=== PATIENT | male | born 1980 | race Caucasian/White ===

== ENCOUNTER 2020-06-25 09:12 | Day surgery (SDC) | payer OTHER ==
[2020-06-18 12:19] VITALS: BMI 29.0
[2020-06-25] MEDS ORDERED: MIDAZOLAM HCL 2 MG/2 ML SINGLE DOSE VIAL ONE ×2 (09:37)
[2020-06-25] MEDS ORDERED: ceFAZolin SODIUM 1 GM VIAL ONE ×2 (09:37→11:01)
[2020-06-25] MEDS ORDERED: KETOROLAC TROMETHAMINE 30 MG/1 ML VIAL ONE ×2 (09:37→11:01)
[2020-06-25] MEDS ORDERED: ONDANSETRON 4 MG/2 ML VIAL ONE ×3 (09:37→12:20)
[2020-06-25] MEDS ORDERED: PROPOFOL 20 ML ONE ×3 (09:37→11:00)
[2020-06-25] MEDS ORDERED: DEXAMETHASONE SOD PHOSPHATE 4 MG/1 ML VIAL ONE ×2 (09:37→11:01)
[2020-06-25] MEDS ORDERED: LIDOCAINE HCL/PF 2% SDV 5ML VIAL ONE ×2 (09:37→09:38)
[2020-06-25] MEDS ORDERED: LIDOCAINE HCL 2% JELLY (5 ML/TUBE) ONE (11:01)
[2020-06-25] MEDS ORDERED: MORPHINE SULFATE 10 MG/1 ML *VIAL ONE (11:10)
[2020-06-25] MEDS ORDERED: DESFLURANE GAS 240 ML BOTTLE IH ONE (11:41)
[2020-06-25] MEDS ORDERED: BUPIVACAINE HCL/PF 0.5% (5 MG/ML) 30 ML VIAL IJ ONE (11:41)
[2020-06-25] MEDS ORDERED: morphine CARPU-JECT 10 MG/1 ML DISP.SYRIN NR ONE (11:41)
[2020-06-25] MEDS ORDERED: PROMETHAZINE HCL 25 MG/1 ML VIAL IVPUSH PRN (12:07)
[2020-06-25] MEDS ORDERED: ONDANSETRON 4 MG/2 ML VIAL IVPUSH PRN (12:07)
[2020-06-25] MEDS ORDERED: oxyCODONE HCL 5 MG TABLET PO PRN ×2 (12:07)
[2020-06-25] MEDS ORDERED: oxyCODONE HCL 5 MG TABLET ONE (13:27)
[2020-06-25 14:11] VITALS: PULSE 79; TEMP 97.8
[2020-06-25 14:12] VITALS: BP 110/65
== END 2020-06-25 14:11 | disposition home or self-care (01) ==
LOC: FASU 09:12
PROVIDERS: ATTEND Orthopaedic Surgery
PROC: 0SQD4ZZ Repair Left Knee Joint, Percutaneous Endoscopic Approach (ICD-10-PCS; 2020-06-25)
PROC: 0SND4ZZ Release Left Knee Joint, Percutaneous Endoscopic Approach (ICD-10-PCS; 2020-06-25)
PROC: 0SQD4ZZ Repair Left Knee Joint, Percutaneous Endoscopic Approach (ICD-10-PCS; 2020-06-25)
PROC: 0SBD4ZZ Excision of Left Knee Joint, Percutaneous Endoscopic Approach (ICD-10-PCS; principal; 2020-06-25 11:25)
DX: S83.242A Other tear of medial meniscus, current injury, left knee, initial encounter (principal); M25.662 Stiffness of left knee, not elsewhere classified; M93.262 Osteochondritis dissecans, left knee; M22.42 Chondromalacia patellae, left knee; M67.52 Plica syndrome, left knee; X58.XXXA Exposure to other specified factors, initial encounter; Y92.9 Unspecified place or not applicable; Y93.9 Activity, unspecified
CPT/HCPCS: 94760